=== PATIENT | female | born 1950 | race Caucasian/White ===

== ENCOUNTER 2022-06-05 14:18 | Outpatient (CLI) | payer MEDICARE, SELFPAY ==
[2022-06-05 13:55] LABS: Chloride* 103 mmol/L (96-114)
[2022-06-05 13:56] LABS: Albumin* 4.7 g/dL (3.3-5.0); Potassium* 4.3 mmol/L (3.6-5.1); Sodium* 138 mmol/L (135-149)
[2022-06-05 13:58] LABS: Carbon Dioxide* 26 mmol/L (20-32); Cholesterol* 173 mg/dL (90-199); Creatinine* 0.9 mg/dL (0.5-1.5); Estimated Glomerular Filt Rate 68 ml/min; Total Protein* 6.8 g/dL (6.0-8.3)
[2022-06-05 13:59] LABS: Alanine Aminotransferase* 18 U/L (4-35); Alkaline Phosphatase* 81 U/L (40-150); Aspartate Amino Transferase* 25 U/L (12-35); Bilirubin Total* 0.5 mg/dL (0.1-1.5); Blood Urea Nitrogen* 29 mg/dL (7-30); Calcium* 9.4 mg/dL (8.4-10.6); Glucose* 97 mg/dL (60-115); Triglycerides* 152 mg/dL (40-149)
[2022-06-05 14:00] LABS: HDL Cholesterol* 53 mg/dL (>=50); LDL Cholesterol Calculated 90 mg/dL (<100)
[2022-06-05 14:13] LABS: Vitamin D 25 Hydroxy* 51 ng/mL (30-80)
[2022-06-05 14:46] LABS: Vitamin B12* 442 pg/mL (243-894)
== END 2022-06-05 14:19 | disposition home or self-care (01) ==
PROVIDERS: PCP Family Medicine; Visit Provider Family Medicine
DX: Z00.00 Encounter for general adult medical examination without abnormal findings (principal); E78.5 Hyperlipidemia, unspecified; G62.9 Polyneuropathy, unspecified; I82.409 Acute embolism and thrombosis of unspecified deep veins of unspecified lower extremity; M85.80 Other specified disorders of bone density and structure, unspecified site
CPT/HCPCS: 80053; 80061; 82306; 82607

== ENCOUNTER 2023-05-29 11:04 | Outpatient (CLI) | payer MEDICARE, SELFPAY | END 2023-05-29 11:05 | disposition home or self-care (01) | PROVIDERS: PCP Family Medicine; Visit Provider Family Medicine | DX: R42 Dizziness and giddiness (principal); E78.5 Hyperlipidemia, unspecified; F33.9 Major depressive disorder, recurrent, unspecified; R55 Syncope and collapse; E66.01 Morbid (severe) obesity due to excess calories; G62.9 Polyneuropathy, unspecified | CPT/HCPCS: 80053; 80061; 82306; 82607; 84443 ==

== ENCOUNTER 2023-06-10 13:37 | Outpatient (CLI) | payer MEDICARE, SELFPAY ==
--- NOTE | 2023-06-10 14:00 | CRLHL7_ITS ---
For Patients: As a result of the Century Cures Act, medical imaging exams and procedure reports are released immediately into your electronic medical record. You may view this report before your referring provider. If you have questions, please contact your health care provider. INDICATION: Syncope and collapse COMPARISON: Brain MRI 02/2014 TECHNIQUE: A CT volumetric acquisition was performed of the brain without IV contrast. Please note that all CT scans at this facility use dose modulation, iterative reconstruction, and/or weight-based dosing when appropriate to reduce radiation dose to as low as reasonably achievable. FINDINGS: Bifrontal cortical atrophy has progressed since the prior study. Extensive low attenuation areas in the white matter also has progressed since the prior exam. No hydrocephalus or midline shift. No intracranial hemorrhage or extra-axial fluid collection. No significant sinus disease. IMPRESSION: Progression of bifrontal cortical atrophy and chronic extensive white matter changes. No hemorrhage or hydrocephalus. Please note that all CT scans at this facility use dose modulation, iterative reconstruction, and/or weight-based dosing when appropriate to reduce radiation dose to as low as reasonably achievable. Dictated by Ayush Chatterjee MD @ 06/10/2023 3:44:41 PM (Electronically Signed)
--- NOTE | 2023-06-10 15:00 | CRLHL7_ITS ---
For Patients: As a result of the Cures Act, medical imaging exams and procedure reports are released immediately into your electronic medical record. You may view this report before your referring provider. If you have questions, please contact your health care provider. CLINICAL HISTORY: SYNCOPE TECHNIQUE: The carotid circulations and the vertebral arteries in the neck were examined with saldana-scale ultrasound, color-flow and Doppler spectral analysis. Degrees of stenosis were determined using SRU 2002 Consensus Panel Criteria. FINDINGS: Sonographic images demonstrate bilateral evidence of atherosclerotic plaque formation without suspicious soft tissue mass. Tortuosity of the carotid arteries noted bilaterally. There was antegrade blood flow demonstrated within the vertebral arteries and the subclavian arteries demonstrated a normal triphasic waveform. The spectral Doppler tracings of the common carotid, internal and external carotid arteries demonstrate mild turbulence and spectral broadening. There was no significant elevation of peak systolic blood flow which would indicate a hemodynamically-significant stenosis by SRU criteria. The ICA/CCA peak systolic velocity ratio measures 2.0 on the right and 1.9 on the left. IMPRESSION: Tortuous carotid arteries bilaterally with atherosclerotic change. No elevated velocities. Less than 50 percent stenosis bilaterally, closer to 50 percent on the right. Dictated by Ayush Chatterjee MD @ 06/10/2023 3:32:30 PM (Electronically Signed)
== END 2023-06-10 13:38 | disposition home or self-care (01) ==
LOC: CT 13:39
PROVIDERS: PCP Family Medicine; Visit Provider Family Medicine
DX: R55 Syncope and collapse (principal); I65.23 Occlusion and stenosis of bilateral carotid arteries
CPT/HCPCS: 70450; 93880

== ENCOUNTER 2023-08-22 13:40 | Outpatient (CLI) | payer MEDICARE, SELFPAY | END 2023-08-22 13:41 | disposition home or self-care (01) | LOC: FRMREF 13:45 | PROVIDERS: PCP Family Medicine; Visit Provider Family Medicine | DX: M85.80 Other specified disorders of bone density and structure, unspecified site (principal); D72.819 Decreased white blood cell count, unspecified | CPT/HCPCS: 82306 ==

== ENCOUNTER 2023-11-14 08:25 | Outpatient (CLI) | payer MEDICARE, SELFPAY ==
--- NOTE | 2023-11-14 10:30 | W.ANESCHARGE ---
Anesthesia Charges Start Date/Time Anesthesia Start Date: 11/14/23 Anesthesia Start Time: 09:57 Stop Date/Time Anesthesia Stop Date: 11/14/23 Anesthesia Stop Time: 10:27 Summary Extremes of Age - Over 70 or under 1: [employer]GER
--- NOTE | 2023-11-14 12:01 | W.ANESCHARGE ---
Anesthesia Charges Start Date/Time Anesthesia Start Date: 11/14/23 Anesthesia Start Time: 09:57 Stop Date/Time Anesthesia Stop Date: 11/14/23 Anesthesia Stop Time: 10:27 Summary Extremes of Age - Over 70 or under 1: MDA
== END 2023-11-14 08:26 | disposition home or self-care (01) ==
LOC: OP CLINIC 08:26
PROVIDERS: PCP Family Medicine; Visit Provider Surgery
DX: Z12.11 Encounter for screening for malignant neoplasm of colon (principal); K63.5 Polyp of colon; K57.30 Diverticulosis of large intestine without perforation or abscess without bleeding; Z86.010 Personal history of colon polyps
CPT/HCPCS: 00811; 45385; 88305; 99100; J2704

== ENCOUNTER 2024-02-03 20:53 | Outpatient (CLI) | payer MEDICARE, SELFPAY ==
--- NOTE | 2024-02-25 11:59 | W.PM.SLEEP ---
Sleep Study Details Details Interpreting Provider: Letty Date of Sleep Study: 02/03/24 Sleep Study Details: STUDY TYPE:? Hospital-based attended ? BMI:? 37.1 ORDERING PROVIDER:Thi Farrell INDICATION:? Concern about sleep apnea ? SLEEP SUMMARY:? 268.5 minutes total sleep time RESPIRATORY SUMMARY:? Mean oxygen awake 93 asleep 91 minimum 68 84.2 minutes oxygen between 80 and 88%, 5.5 minutes oxygen between 70 and 79% AHI 18.5 per CMS guideline, supine 25.8, nonsupine 11.2 Supine REM AHI 72.9 PERIODIC LIMB MOVEMENTS OF SLEEP:? Index 32.2, index with arousal 0 CARDIAC:? Awake 74 asleep 78, rare PACs noted IMPRESSION:? Moderate obstructive sleep apnea with supine position dependency RECOMMENDATION: Treatment options include CPAP, dental appliance, weight loss.
== END 2024-02-03 20:54 | disposition home or self-care (01) ==
LOC: SLEEP 20:54
PROVIDERS: PCP Family Medicine; Visit Provider Otolaryngology
DX: G47.33 Obstructive sleep apnea (adult) (pediatric) (principal)
CPT/HCPCS: 95810

== ENCOUNTER 2024-11-04 12:39 | Outpatient (CLI) | payer MEDICARE, SELFPAY ==
--- NOTE | 2024-11-04 13:00 | CRLHL7_ITS ---
For Patients: As a result of the Century Cures Act, medical imaging exams and procedure reports are released immediately into your electronic medical record. You may view this report before your referring provider. If you have questions, please contact your health care provider. XR DXA Bone Mineral Density (BMD) Reason for exam: Other specific disorders of bone density. Current height (in): 62. Weight (lb): 189. Menopause age: 55. Ethnicity: White. 1. Have you had a previous hip or vertebral fracture? No. 2. Have you had any fractures during your adult life which did not result from significant trauma (e.g., auto accident)? Yes. 3. Did either of your parents have a hip fracture? Yes. 4. Do you smoke? No. 5. Have you ever taken Glucocorticoids? No. 6. Do you have rheumatoid arthritis? No. 7. Do you have secondary osteoporosis? No. 8. Do you drink 3 or more alcoholic drinks per day? No. 9. Are you being treated for osteoporosis? No. 10. Have you ever taken any of the following medications: Actonel, Evista, Fosamax, Miacalcin, Reclast, Boniva, Forteo, HRT (i.e., estrogen/hormone therapy), Protelos, Prolia, Vitamin D, Calcium, other ??? please specify. ANSWER: Yes, vitamin D and calcium. 11. Do you have any of the following medical conditions: Anorexia or bulimia, asthma or emphysema, end stage renal disease, hyperparathyroidism, any seizure disorders, cancer, inflammatory bowel diseases, hysterectomy, other ??? please specify. ANSWER: Yes, breast cancer. 12. What was your maximum height (inches)? 64.5. 13. Do you perform weight bearing exercise regularly? Yes. 14. Do you regularly consume dairy products? Yes. 15. Do you drink caffeinated beverages? No. 16. At what age did your period start? 16. 17. Are you premenopausal? No. 18. How many full-term pregnancies have you had? 1. 19. Have you ever missed your period for more than 6 months in a row (not including or menopause)? No. TECHNIQUE: Bone mineral density study was performed using the [employer]. FINDINGS: The results of the study expressed as bone mineral density (BMD) are as follows: Lumbar spine L1 to L4: BMD: 0.941 g/cm2. T-score: -1.0. Z-score: 1.4 Neck Left: BMD: 0.763 g/cm2. T-score: -0.8. Z-score: 1.3 Right: BMD: 0.729 g/cm2. T-score: -1.1. Z-score: 1.0 Total Left: BMD: 0.945 g/cm2. T-score: 0.0. Z-score: 1.8 Right: BMD: 0.960 g/cm2. T-score: 0.1. Z-score: 1.9 IMPRESSION: Osteopenia. *Comparison exams done prior to 02/2020 were performed on different unit, [facility]. COMPARISON: Compared with scan of 02/19/2019, the bone mineral density has decreased by 3.1 percent at the spine and decreased by 2.5 percent at the hip. Compared with scan of 11/22/2016, the bone mineral density has increased by 1.5 percent at the spine and decreased by 1.3 percent at the hip. FRAX 10-year Fracture Risk Major Osteoporotic Fracture: 21% Hip Fracture: 7.8% Reported Risk Factors: [place] () Neck BMD=0.729, BMI=34.6, previous fracture, parental fracture Kerry Franco M.D. Diagnostic Radiologist [email or web address] JAMAL/bi pat/Dictated by: Kerry Franco MD @ 11/06/2024 6:56:00 AM (Electronically Signed)
== END 2024-11-04 12:40 | disposition home or self-care (01) ==
LOC: RAD 12:40
PROVIDERS: PCP Family Medicine; Referring Provider Internal Medicine Medical Oncology; Visit Provider Family Medicine
DX: M85.89 Other specified disorders of bone density and structure, multiple sites (principal)
CPT/HCPCS: 77080

== ENCOUNTER 2025-01-05 10:19 | Outpatient (CLI) | payer MEDICARE, SELFPAY | END 2025-01-05 10:20 | disposition home or self-care (01) | PROVIDERS: PCP Family Medicine; Visit Provider Family Medicine | DX: Z00.01 Encounter for general adult medical examination with abnormal findings (principal); E78.5 Hyperlipidemia, unspecified; Z11.59 Encounter for screening for other viral diseases | CPT/HCPCS: 80053; 80061; 86803 ==

== ENCOUNTER 2025-01-27 08:01 | Outpatient (CLI) | payer MEDICARE, SELFPAY ==
--- NOTE | 2025-01-27 08:15 | CRLHL7_ITS ---
For Patients: As a result of the Cures Act, medical imaging exams and procedure reports are released immediately into your electronic medical record. You may view this report before your referring provider. If you have questions, please contact your health care provider. Examination: US abdominal aorta Indication: hyperlipidemia. Abdominal aortic aneurysm screening. Technique: Lozano scale and color Doppler images of the aorta and common iliac arteries are obtained. Comparison: None Findings: Proximal aorta: 2.9 x 2.6 cm Mid aorta: 2.6 x 2.3 cm Distal aorta: 1.9 x 1.9 cm Right common iliac artery: 1.1 x 1.2 cm Left common iliac artery: 1.3 x 1.0 cm Impression: No abdominal aortic aneurysm. Dictated by Ayush Chatterjee MD @ 01/27/2025 8:38:54 AM (Electronically Signed)
--- NOTE | 2025-01-27 09:15 | CRLHL7_ITS ---
For Patients: As a result of the Century Cures Act, medical imaging exams and procedure reports are released immediately into your electronic medical record. You may view this report before your referring provider. If you have questions, please contact your health care provider. EXAMINATION: MRA HEAD DATE: 01/27/2025 HISTORY: Patient with family history of strokes. TECHNIQUE: 3D TOF MRA of the head was performed. COMPARISON: CT 06/10/2023. FINDINGS: The intracranial segments of the right internal carotid artery are normal. The anterior communicating artery is seen. The visualized portions of the right middle and anterior cerebral arteries are normal. The intracranial segments of the left internal carotid artery are normal. The visualized portions of the left middle and anterior cerebral arteries are normal. The vertebral arteries are codominant. The visualized intracranial portions of the vertebral arteries are normal. The basilar artery is normal. The right posterior cerebral artery is normal. The left posterior cerebral artery is normal. IMPRESSION: Normal MRA of the head. Dictated by: David Alvarez MD @ 01/27/2025 10:09:14 (Electronically Signed)
== END 2025-01-27 08:02 | disposition home or self-care (01) ==
LOC: US 08:02
PROVIDERS: PCP Family Medicine; Visit Provider Family Medicine
DX: E78.5 Hyperlipidemia, unspecified (principal); Z13.6 Encounter for screening for cardiovascular disorders; Z82.3 Family history of stroke
CPT/HCPCS: 70544; 76706